=== PATIENT | female | born 1995 ===

== ENCOUNTER → 2024-01-28 | Outpatient (CLI) | payer SELFPAY ==
[~2024-01-28] MED LIST: HYDR1TAB94 PO; Naprosyn500 MG PO; Veetids 500500 MG PO
== END ==
LOC: RAD SHORT 07:46 → LAB 07:46
DX: D48.5 Neoplasm of uncertain behavior of skin (principal)
CPT/HCPCS: 88305

== ENCOUNTER → 2024-02-08 | Outpatient (CLI) | payer OTHER | END | disposition home or self-care (01) | LOC: LAB SHORT 07:32 → LAB 07:32 | DX: D22.5 Melanocytic nevi of trunk (principal) | CPT/HCPCS: 88305 ==